=== PATIENT | male | born 1980 | race Caucasian/White ===

== ENCOUNTER 2017-08-28 11:00 | Emergency (ER) | payer BC ==
[2017-08-28] MEDS ORDERED: METRONIDAZOLE 500mg IVPB 500 MG/100 ML BAG IV ONE (12:47)
[2017-08-28] MEDS ORDERED: MORPHINE 4 MG/ML SYR ONE ×2 (12:47→14:56)
[2017-08-28] MEDS ORDERED: ONDANSETRON 4 MG/2 ML VIAL ONE ×2 (12:47→14:56)
[2017-08-28] MEDS ORDERED: NA CHLORIDE 0.9% 1,000 ML ONE (12:47)
[2017-08-28] MEDS ORDERED: Levofloxacin500mg IV 500 MG/100 ML BAG IV ONE (12:47)
--- NOTE | 2017-08-28 13:52 | RAD REPORT ---
EXAM DESCRIPTION: CTAbdomen Pelvis W Contrast - 08/28/2017 1:41 pm CLINICAL HISTORY: Abdominal pain. Perineal pain/swelling COMPARISON: No comparisons TECHNIQUE: Biphasic CT imaging of the abdomen and pelvis was performed with 100 ml non-ionic IV cont rast. All CT scans are performed using dose optimization technique as appropriate and may include automated exposure control or mA/KV adjustment according to patient size. FINDINGS: The lung bases are clear. The liver, spleen, pancreas, adrenal glands and kidneys are within normal limits. No bowel obstruction, free air, free fluid or abscess. The appendix is normal. No suspicious bony findings. Prominent fat stranding is seen in the perineum without a focal fluid collection to suggest abscess. Several prominent left inguinal lymph nodes are presumably reactive in nature. IMPRESSION: Inflammatory changes are seen in the fat of the perineum on the left. No localized fluid collection is seen in the region to indicate abscess. Mild reactive left inguinal region adenopathy suspected.
--- NOTE | 2017-08-28 14:21 | EDPHYS ---
Physician Documentation [facility] Name: Price Becker Age: 36 yrs Sex: Male : 1980 Arrival Date: 08/28/2017 Time: 11:02 Bed 8 Private MD: Sanju Mahoney H ED Physician Dejuan Fletcher HPI: 08/28 12:08 This 36 yrs old Male presents to ER via Ambulatory with complaints of Abscess.kdr 12:08 the patient presents with a swollen area of the left gluteal fold, groin and left kdr femoral area, Left perineum . Description: erythematous, fluctuant, raised, swollen, warm. Onset: The symptoms/episode began/occurred this morning. Possible cause(s): unknown. Associated signs and symptoms: The patient has no apparent associated signs or symptoms. Modifying factors: the symptoms are alleviated by nothing, the symptoms are aggravated by movement, walking, pressure, sitting, touching. Severity of symptoms: At their worst the symptoms were mild, just prior to arrival, in the emergency department the symptoms are unchanged. The patient has not experienced similar symptoms in the past. The patient has been recently seen by a physician: Has been seen for low back pain recently and was scheduled to have an MRI of his back - this problem started in the last few weeks. Historical: - Allergies: 11:14 PENICILLINS; sg - Home Meds: 11:14 Lisinopril Oral [Active]; sg - PMHx: 11:14 Depression; Hypertension; sg - PSHx: 11:14 None; sg - Immunization history:: Adult Immunizations up to date. - Social history:: Smoking status: Patient uses tobacco products, denies chronic smoking, but will smoke occasionally. - Ebola Screening: : Patient negative for fever greater than or equal to 101.5 degrees Fahrenheit, and additional compatible Ebola Virus Disease symptoms Patient denies exposure to infectious person Patient denies travel to an Ebola-affected area in the 21 days before illness onset No symptoms or risks identified at this time. ROS: 12:08 Constitutional: Negative for fever, chills, and weight loss, Eyes: Negative for injury, kdr pain, redness, and discharge, Neck: Negative for injury, pain, and swelling, Cardiovascular: Negative for chest pain, palpitations, and edema, Respiratory: Negative for shortness of breath, cough, wheezing, and pleuritic chest pain, Abdomen/GI: Negative for abdominal pain, nausea, vomiting, diarrhea, and constipation, Back: Negative for injury and pain, : Negative for injury, bleeding, discharge, and swelling, MS/Extremity: Negative for injury and deformity, Skin: Negative for injury, rash, and discoloration, Neuro: Negative for headache, weakness, numbness, tingling, and seizure activity. Psych: Negative for depression, anxiety, suicide ideation, homicidal ideation, and hallucinations, Allergy/Immunology: Negative for hives, rash, and allergies, Endocrine: Negative for neck swelling, polydipsia, polyuria, polyphagia, and marked weight changes, Hematologic/Lymphatic: Negative for swollen nodes, abnormal bleeding, and unusual bruising. 12:08 : Positive for Swelling and tenderness to the left perineum . Exam: 12:08 Constitutional: This is a well developed, well nourished patient who is awake, alert, kdr and in no acute distress. Head/Face: Normocephalic, atraumatic. Eyes: Pupils equal round and reactive to light, extra-ocular motions intact. Lids and lashes normal. Conjunctiva and sclera are non-icteric and not injected. Cornea within normal limits. Periorbital areas with no swelling, redness, or edema. Neck: Trachea midline, no thyromegaly or masses palpated, and no cervical lymphadenopathy. Supple, full range of motion without nuchal rigidity, or vertebral point tenderness. No Meningismus. Chest/axilla: Normal chest wall appearance and motion. Nontender with no deformity. No lesions are appreciated. Cardiovascular: Regular rate and rhythm with a normal S1 and S2. No gallops, murmurs, or rubs. Normal PMI, no JVD. No pulse deficits. Respiratory: Lungs have equal breath sounds bilaterally, clear to auscultation and percussion. No rales, rhonchi or wheezes noted. No increased work of breathing, no retractions or nasal flaring. Abdomen/GI: Soft, non-tender, with normal bowel sounds. No distension or tympany. No guarding or rebound. No evidence of tenderness throughout. Back: No spinal tenderness. No costovertebral tenderness. Full range of motion. Skin: Warm, dry with normal turgor. Normal color with no rashes, no lesions, and no evidence of cellulitis. MS/ Extremity: Pulses equal, no cyanosis. Neurovascular intact. Full, normal range of motion. Neuro: Awake and alert, GCS 15, oriented to person, place, time, and situation. Cranial nerves II-XII grossly intact. Motor strength 5/5 in all extremities. Sensory grossly intact. Cerebellar exam normal. Normal gait. Psych: Awake, alert, with orientation to person, place and time. Behavior, mood, and affect are within normal limits. 12:08 : Male external genitalia: Vital Signs: 11:14 Pulse 112; Resp 17 S; Temp 98.4; Pulse Ox 100% on R/A; Weight 108.86 kg; Height 6 ft. 0 sg in. (182.88 cm); Pain 10/10; 11:16 BP 124 / 67; sg 13:00 BP 132 / 70; Pulse 101; Resp 20; Pulse Ox 99% on R/A; aj 14:42 BP 127 / 69; Pulse 95; Resp 19; Pulse Ox 99% on R/A; aj 16:21 BP 141 / 78; Pulse 86; Resp 15; Pulse Ox 98% on R/A; aj 11:14 Body Mass Index 32.55 (108.86 kg, 182.88 cm) sg MDM: 12:08 Data reviewed: vital signs, nurses notes, lab test result(s). kdr 14:20 Patient medically screened. kdr 08/28 13:31 Order name: CBC with Diff; Complete Time: 14:46 kdr 08/28 13:31 Order name: Chem 7 kdr 08/28 12:07 Order name: CT Abd/Pelvis - W/Contrast; Complete Time: 14:03 kdr Administered Medications: 12:57 Drug: Flagyl 500 mg Volume: 100 ml; Route: IVPB; Rate: 200 ml/hr; Infused Over: 30 aj mins; Site: right antecubital; 14:16 Follow up: IV Status: Completed infusion ae1 12:58 Drug: morphine 4 mg Route: IVP; Site: right antecubital; aj 15:00 Follow up: Response: Pain is decreased aj 12:58 Drug: Zofran 4 mg Route: IVP; Site: right antecubital; aj 15:00 Follow up: Response: No adverse reaction aj 12:58 Drug: NS 0.9% 1000 ml Route: IV; Rate: 1 bolus; Site: right antecubital; aj 14:16 Follow up: IV Status: Completed infusion ae1 14:59 Drug: LevaQUIN 750 mg Volume: 150 ml; Route: IVPB; Infused Over: 90 mins; Site: right aj antecubital; 16:30 Follow up: Response: No adverse reaction; IV Status: Completed infusion; IV Intake: aj 150ml 14:59 Drug: morphine 4 mg Route: IVP; Site: right antecubital; aj 16:30 Follow up: Response: Pain is decreased aj 15:00 Drug: Zofran 4 mg Route: IVP; Site: right antecubital; aj 16:30 Follow up: Response: No adverse reaction aj 15:00 Drug: [place] 10 mg-325 mg 1 tabs Route: PO; aj 16:31 Follow up: Response: Pain is decreased aj Disposition: 08/28/17 14:20 Discharged to Home. Impression: Cellulitis of perineum. - Condition is Stable. - Discharge Instructions: Cellulitis, [id number]. - Prescriptions for Clindamycin HCl 300 mg Oral Capsule - take 1 capsule by ORAL route every 6 hours for 10 days; 40 capsule. Tramadol 50 mg Oral Tablet - take 1 tablet by ORAL route every 8 hours as needed; 12 tablet. Bactrim DS 800- 160 mg Oral Tablet - take 1 tablet by ORAL route every 12 hours for 10 days; 20 tablet. Tylenol- Codeine #3 300-30 mg Oral Tablet - take 2 tablet by ORAL route every 6 hours As needed; 30 tablet. - Medication Reconciliation Form, Thank You Letter, Antibiotic Education, Prescription Opioid Use form. - Follow up: Private Physician; When: 2 - 3 days; Reason: If symptoms return, Further diagnostic work-up, Recheck today's complaints, Continuance of care, Re-evaluation by your physician. - Problem is new. - Symptoms are unchanged. Signatures: Dispatcher [employer] EDMS Quintin Celeste RN RN sg Myers, Amanda, RN RN aj Rittger, Kevin, MD MD kdr Elliott, Andrea RN ae1 Corrections: (The following items were deleted from the chart) 16:31 14:20 08/28/2017 14:20 Discharged to Home. Impression: Cellulitis of perineum. aj Condition is Stable. Forms are Medication Reconciliation Form, Thank You Letter, Antibiotic Education, Prescription Opioid Use. Follow up: Private Physician; When: 2 - 3 days; Reason: If symptoms return, Further diagnostic work-up, Recheck today's complaints, Continuance of care, Re-evaluation by your physician. Problem is new. Symptoms are unchanged. kdr
--- NOTE | 2017-08-28 14:21 | ER ---
Nurse's Notes [facility] Name: Price Becker Age: 36 yrs Sex: Male : 1980 Arrival Date: 08/28/2017 Time: 11:02 Bed 8 Private MD: Sanju Mahoney H Diagnosis: Cellulitis of perineum Presentation: 08/28 11:12 Presenting complaint: Patient states: Abscess reported the size of the golfball, in sg perineum area, reports pain and redness. Transition of care: patient was not received from another setting of care. Onset of symptoms was August 28, 2017. Risk Assessment: Do you want to hurt yourself or someone else? Patient reports no desire to harm self or others. Care prior to arrival: None. 11:12 Method Of Arrival: Ambulatory 11:12 Acuity: CASANDRA 3 sg Historical: - Allergies: 11:14 PENICILLINS; sg - Home Meds: 11:14 Lisinopril Oral [Active]; sg - PMHx: 11:14 Depression; Hypertension; sg - PSHx: 11:14 None; sg - Immunization history:: Adult Immunizations up to date. - Social history:: Smoking status: Patient uses tobacco products, denies chronic smoking, but will smoke occasionally. - Ebola Screening: : Patient negative for fever greater than or equal to 101.5 degrees Fahrenheit, and additional compatible Ebola Virus Disease symptoms Patient denies exposure to infectious person Patient denies travel to an Ebola-affected area in the 21 days before illness onset No symptoms or risks identified at this time. Screenin:00 Abuse screen: Denies threats or abuse. Denies injuries from another. Nutritional aj screening: No deficits noted. Tuberculosis screening: No symptoms or risk factors identified. Fall Risk None identified. Assessment: 13:00 General: Appears in no apparent distress. uncomfortable, Behavior is calm, cooperative, aj appropriate for age. Pain: Complains of pain in perineum. Neuro: Level of Consciousness is awake, alert, obeys commands, Oriented to person, place, time, situation, Appropriate for age. Respiratory: Airway is patent Respiratory effort is even, unlabored, Respiratory pattern is regular, symmetrical. Derm: Skin is intact, is healthy with good turgor, Skin is pink, warm \T\ dry. normal, Abscess located on perineum. 16:20 Reassessment: Patient appears in no apparent distress at this time. No changes from aj previously documented assessment. Patient and/or family updated on plan of care and expected duration. Pain level reassessed. Patient is alert, oriented x 3, equal unlabored respirations, skin warm/dry/pink. Patient states feeling better. Patient states symptoms have improved. Vital Signs: 11:14 Pulse 112; Resp 17 S; Temp 98.4; Pulse Ox 100% on R/A; Weight 108.86 kg; Height 6 ft. 0 sg in. (182.88 cm); Pain 10/10; 11:16 BP 124 / 67; sg 13:00 BP 132 / 70; Pulse 101; Resp 20; Pulse Ox 99% on R/A; aj 14:42 BP 127 / 69; Pulse 95; Resp 19; Pulse Ox 99% on R/A; aj 16:21 BP 141 / 78; Pulse 86; Resp 15; Pulse Ox 98% on R/A; aj 11:14 Body Mass Index 32.55 (108.86 kg, 182.88 cm) ED Course: 11:02 Patient arrived in ED. sb2 11:03 Sanju Mahoney MD is Private Physician. sb2 11:13 Triage completed. sg 11:14 Arm band placed on. sg 11:54 Dejuan Fletcher MD is Attending Physician. kdr 12:18 Radiology exam delayed due to lab results not completed at this time. (BUN/Creatinine) vr IV insertion attempt and/or patient not having appropriate IV at this time. 12:20 Gia Sher, RN is Primary Nurse. aj 13:00 Patient has correct armband on for positive identification. aj 13:00 Inserted saline lock: 18 gauge in right antecubital area, using aseptic technique. aj Blood collected. 13:41 CT Abd/Pelvis - W/Contrast In Process Unspecified. EDMS 16:29 No provider procedures requiring assistance completed. IV discontinued, intact, aj bleeding controlled, No redness/swelling at site. Pressure dressing applied. Administered Medications: 12:57 Drug: Flagyl 500 mg Volume: 100 ml; Route: IVPB; Rate: 200 ml/hr; Infused Over: 30 aj mins; Site: right antecubital; 14:16 Follow up: IV Status: Completed infusion ae1 12:58 Drug: morphine 4 mg Route: IVP; Site: right antecubital; aj 15:00 Follow up: Response: Pain is decreased aj 12:58 Drug: Zofran 4 mg Route: IVP; Site: right antecubital; aj 15:00 Follow up: Response: No adverse reaction aj 12:58 Drug: NS 0.9% 1000 ml Route: IV; Rate: 1 bolus; Site: right antecubital; aj 14:16 Follow up: IV Status: Completed infusion ae1 14:59 Drug: LevaQUIN 750 mg Volume: 150 ml; Route: IVPB; Infused Over: 90 mins; Site: right aj antecubital; 16:30 Follow up: Response: No adverse reaction; IV Status: Completed infusion; IV Intake: aj 150ml 14:59 Drug: morphine 4 mg Route: IVP; Site: right antecubital; aj 16:30 Follow up: Response: Pain is decreased aj 15:00 Drug: Zofran 4 mg Route: IVP; Site: right antecubital; aj 16:30 Follow up: Response: No adverse reaction aj 15:00 Drug: [place] 10 mg-325 mg 1 tabs Route: PO; aj 16:31 Follow up: Response: Pain is decreased aj Intake: 16:30 IV: 150ml; Total: 150ml. aj Outcome: 14:20 Discharge ordered by . kdr 16:31 Patient left the ED. aj Signatures: Dispatcher [employer] EDMS Quintin Celeste, RN Gia Tovar RN RN aj Rittger, Kevin, MD MD kdr Davis, Victoria vr Elliott, Andrea, RN RN aeFátima Lanier
[2017-08-28 14:43] LABS: Absolute Lymphocytes (CBC) 1.6 K/uL (0.7-4.9); Absolute Monocytes 2.5 K/uL (0.1-1.3); Absolute Neutrophil 14.7 K/uL (1.8-8.0); Basophils % 0.1 % (0-1.3); Eosinophils % 0.1 % (0-4.4); Hematocrit 42.7 % (39.6-49.0); Lymphocytes % 8.5 % (15.3-44.8); MCH 33.2 pg (27.0-35.0); MCV 97.5 fL (80-100); MPV 7.9 fL (7.6-11.3); Monocytes % 13.4 % (3.3-12.3); RBC Red Blood Cell Count 4.38 M/uL (4.33-5.43)
[2017-08-28] MEDS ORDERED: Levofloxacin 750mg IV 750 MG/150 ML BAG IV ONE (14:49)
[2017-08-28 14:55] LABS: Potassium 4.4 mmol/L (3.5-5.1)
[2017-08-28] MEDS ORDERED: HYDROCODONE/APAP 10/325 TAB ONE (14:56)
[2017-08-28 16:43] VITALS: TEMP 98.4
[2017-08-28 16:47] VITALS: BP 141/78; O2SAT 98
== END 2017-08-28 16:31 | disposition home or self-care (01) ==
LOC: ER 11:00
DX: L03.315 Cellulitis of perineum (principal); I10 Essential (primary) hypertension; Z72.0 Tobacco use; Z88.0 Allergy status to penicillin
CPT/HCPCS: 36415; 74177; 80048; 85025; 96361; 96365; 96366; 96367; 96375; 99284; J2405; J7030; Q9967

== ENCOUNTER 2017-08-30 09:37 | Inpatient (IN) | payer BC ==
[2017-08-30] MEDS ORDERED: ONDANSETRON 4 MG/2 ML VIAL ONE (10:19)
[2017-08-30] MEDS ORDERED: FENTANYL CITR 100 MCG/2 ML ONE (10:19)
[2017-08-30 11:04] LABS: Absolute Lymphocytes (CBC) 1.1 K/uL (0.7-4.9); Absolute Monocytes 1.6 K/uL (0.1-1.3); Absolute Neutrophil 17.9 K/uL (1.8-8.0); Basophils % 0.3 % (0-1.3); Eosinophils % 0.3 % (0-4.4); Hematocrit 40.8 % (39.6-49.0); Lymphocytes % 5.4 % (15.3-44.8); MCH 33.5 pg (27.0-35.0); MCV 96.4 fL (80-100); MPV 7.6 fL (7.6-11.3); Monocytes % 7.9 % (3.3-12.3); RBC Red Blood Cell Count 4.23 M/uL (4.33-5.43)
[2017-08-30 11:42] LABS: Albumin 3.4 g/dL (3.4-5.0); Bilirubin Direct 0.2 mg/dL (0-0.2); Bilirubin Total 0.7 mg/dL (0.2-1.0); Potassium 4.3 mmol/L (3.5-5.1); Protein, Total 7.7 g/dL (6.4-8.2)
--- NOTE | 2017-08-30 12:22 | RAD REPORT ---
EXAM DESCRIPTION: CT - Pelvis W/Cont - 08/30/2017 11:46 am CLINICAL HISTORY: Pelvic pain/perineal COMPARISON: August [address] scan TECHNIQUE: Computed axial tomography of the pelvis was obtained. 50 cc Isovue-300 administered intra venously. All CT scans are performed using dose optimization technique as appropriate and may include automated exposure control or mA/KV adjustment according to patient size. FINDINGS: Marked stranding is present within the subcutaneous tissues of the left buttock and left p erineum. A 2 x 1 centimeter fluid collection is present within the anterior left perineum. Air within the tissues is not seen. The appendix is normal. There is no evidence diverticulitis. An intraabdominal abscess is not noted. IMPRESSION: Marked stranding within the subcutaneous tissues of the left buttock and left perineum c onsistent with a cellulitis 2 x 1 centimeter fluid collection within the anterior left perineum likely representing an abscess
--- NOTE | 2017-08-30 12:29 | ER ---
Nurse's Notes [facility] Name: Price Becker Age: 36 yrs Sex: Male : 1980 Arrival Date: 08/30/2017 Time: 09:40 Bed 6 Private MD: Sanju Mahoney H Diagnosis: Cutaneous abscess of perineum;Cellulitis of perineum Presentation: 08/30 09:53 Presenting complaint: Patient states: increased redness, swelling and drainage from sv abscess to the left buttocks into the perineum. Pt reports he was seen here on Thursday and they sent him home with Clindamycin, Bactrim, Tramadol, and Tylenol #3. Pt reports it started on after completing Prednisone. Pt reports constipation. Transition of care: patient was not received from another setting of care. Onset of symptoms was August 27, 2017. Risk Assessment: Do you want to hurt yourself or someone else? Patient reports no desire to harm self or others. Initial Sepsis Screen: Does the patient meet any 2 criteria? No. Patient's initial sepsis screen is negative. Does the patient have a suspected source of infection? Yes: Skin breakdown/wound. Care prior to arrival: None. 09:53 Method Of Arrival: Ambulatory sv 09:53 Acuity: CASANDRA 3 sv Triage Assessment: 09:55 General: Appears in no apparent distress. uncomfortable, well developed, Behavior is sv calm, cooperative, appropriate for age. Pain: Complains of pain in left gluteus essie, left gluteal fold and perineum Pain currently is 10 out of 10 on a pain scale. Pain began Is continuous, Current management is with Tylenol #3 is ineffective. EENT: No signs and/or symptoms were reported regarding the EENT system. Neuro: Level of Consciousness is awake, alert, obeys commands, Oriented to person, place, time, situation, Moves all extremities. Full function Gait is steady. Respiratory: Respiratory effort is even, unlabored, Respiratory pattern is regular, symmetrical. Derm: Skin is pink, warm \T\ dry. Abscess located on left gluteus essie, left gluteal fold and perineum has purulent drainage, is hot to touch, is red, is raised, was lanced by patient prior to arrival. Historical: - Allergies: 10:02 PENICILLINS; sv - Home Meds: 10:02 lisinopril Oral [Active]; sv - PMHx: 10:02 Depression; Hypertension; sv - PSHx: 10:02 None; sv - Immunization history:: Adult Immunizations up to date. - Ebola Screening: : No symptoms or risks identified at this time. - Social history:: Smoking status: Patient uses tobacco products, denies chronic smoking, but will smoke occasionally. Screenin:06 Abuse screen: Denies threats or abuse. Denies injuries from another. Nutritional sv screening: No deficits noted. Tuberculosis screening: No symptoms or risk factors identified. Fall Risk None identified. Assessment: 10:06 Reassessment: See triage assessment. sv 12:58 Reassessment: Patient appears in no apparent distress at this time. Patient and/or ph family updated on plan of care and expected duration. Pain level reassessed. Patient is alert, oriented x 3, equal unlabored respirations, skin warm/dry/pink. Pt c/o pain 5/10, medication administered per ERP order, see MAR. 14:47 Reassessment: Patient appears in no apparent distress at this time. Patient and/or sv family updated on plan of care and expected duration. Pain level reassessed. Patient is alert, oriented x 3, equal unlabored respirations, skin warm/dry/pink. 15:19 Reassessment: Patient appears in no apparent distress at this time. Patient and/or sv family updated on plan of care and expected duration. Pain level reassessed. Patient is alert, oriented x 3, equal unlabored respirations, skin warm/dry/pink. Vital Signs: 10:02 BP 132 / 70; Pulse 88; Resp 20; Temp 97.9; Pulse Ox 96% ; Weight 108.86 kg; Height 6 sv ft. 0 in. (182.88 cm); Pain 10/10; 11:03 BP 116 / 64; Pulse 90; Resp 18; Pulse Ox 96% ; Pain 4/10; sv 11:04 Pain 4/10; sv 12:17 BP 126 / 61; Pulse 73; Resp 18; Pulse Ox 97% ; sv 13:03 BP 132 / 73; Pulse 79; Resp 16; Pulse Ox 98% on R/A; Pain 5/10; ph 15:20 BP 120 / 71; Pulse 77; Resp 18; Pulse Ox 99% ; sv 10:02 Body Mass Index 32.55 (108.86 kg, 182.88 cm) sv ED Course: 09:40 Patient arrived in ED. sb2 09:40 Sanju Mahoney MD is Private Physician. sb2 09:52 Roberta Carmen, EVERARDO is Primary Nurse. sv 09:59 Jhon West NP is PHCP. pm1 09:59 Ryan Mahmood MD is Attending Physician. pm1 10:01 Triage completed. sv 10:02 Arm band placed on right wrist. sv 10:06 Patient has correct armband on for positive identification. Placed in gown. Bed in low sv position. Adult w/ patient. Pulse ox on. NIBP on. Door closed. Warm blanket given. Head of bed elevated. 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 sv 10:20 Initial lab(s) drawn, by me, sent to lab. Inserted saline lock: 20 gauge in left sv antecubital area, using aseptic technique. Blood collected. Flushed left antecubital with 5 ml normal saline. 10:50 Note: waiting on labs per jhon west np. Radiology exam delayed due to lab results cw1 not completed at this time. (BUN/Creatinine). 11:00 Lab(s) recollected, by me, sent to lab. sv 11:46 CT completed. Patient moved to CT via stretcher. Patient moved back from CT. cw1 11:47 Pelvis W/Cont In Process Unspecified. EDMS 12:28 Aracely Choudhury MD is Hospitalizing Provider. pm1 15:00 Assist provider with I \T\ D: of an abscess on left perineal Set up I\T\D tray. Performed sv by Jhon West NP Culture sent to lab. Wound packed. iodoform gauze, Dressing with ABD pad, Patient tolerated well. Patient admitted, IV remains in place. intact. Administered Medications: 10:15 CANCELLED (Physician Discretion): morphine 4 mg IVP once pm1 10:28 Drug: Zofran 4 mg Route: IVP; Site: left antecubital; sv 11:04 Follow up: Response: No adverse reaction sv 10:30 Drug: fentaNYL (PF) 50 mcg Route: IVP; Site: left antecubital; sv 11:04 Follow up: Pain 4/10 Adult; Response: No adverse reaction sv 12:43 Drug: vancoMYCIN 1 grams Route: IVPB; Infused Over: 2 hrs; Site: left antecubital; ph 14:45 Follow up: Response: No adverse reaction; IV Status: Completed infusion; IV Intake: sv 200ml 12:58 Drug: fentaNYL (PF) 50 mcg Route: IVP; Site: left antecubital; ph 13:44 Follow up: Response: No adverse reaction sv 14:47 Drug: Zosyn 3.375 grams Route: IVPB; Infused Over: 60 mins; Site: left antecubital; sv 15:21 Follow up: Response: No adverse reaction; IV Status: Completed infusion; IV Intake: sv 100ml 15:00 Drug: Lidocaine (1 %) 5 ml {Note: given to Jhon MENDOSA for procedure.} Volume: 5 ml; sv Route: Infiltration; 15:00 Drug: Marcaine (0.5 %) 10 ml {Note: given to Jhon MENDOSA.} Volume: 10 ml; Route: sv Infiltration; Intake: 14:45 IV: 200ml; Total: 200ml. sv 15:21 IV: 100ml; Total: 300ml. sv Outcome: 12:29 Decision to Hospitalize by Provider. pm1 15:28 Admitted to Med/surg accompanied by tech, via wheelchair, room 409, with chart, Report sv called to Sari MCGEE 15:28 Condition: stable 15:28 Instructed on the need for admit. 15:42 Patient left the ED. sv 15:55 Patient left the ED. Signatures: Dispatcher [facility] Roberta Cristobal RN RN sv Smirch, Shelby, RN RN ss Woodley, Crystal 1 Shirley Eng RN RN ph Marinas, Patrick, NP [employer] pm1 Fátima Villanueva
--- NOTE | 2017-08-30 12:29 | EDPHYS ---
Physician Documentation [facility] Name: Price Becker Age: 36 yrs Sex: Male : 1980 Arrival Date: 08/30/2017 Time: 09:40 Bed 6 Private MD: Sanju Mahoney H ED Physician Ryan Mahmood HPI: 08/30 10:18 This 36 yrs old Male presents to ER via Ambulatory with complaints of pm1 Cellulitis. 10:18 The patient presents with cellulitis of the left perineum. Description: draining, pm1 swollen, tense. 10:18 Onset: The symptoms/episode began/occurred 4 day(s) ago. Possible cause(s): unknown. pm1 Associated signs and symptoms: Pertinent positives: drainage, Pertinent negatives: nausea, vomiting. Modifying factors: the symptoms are alleviated by nothing, the symptoms are aggravated by movement, pressure, sitting. Severity of symptoms: in the emergency department the symptoms are actually worse. The patient has not experienced similar symptoms in the past. The patient has been recently seen at the [facility] Emergency Department, two days ago for the same complaint. labs and Ct performed. No abscess present on CT. Patient discharged home with dx of cellulitis and antibiotic therapy. 11:16 Tmax 100.0 axillary at home. Has had some chills since onset of swelling. Has been pm1 taking ibuprofen and Tylenol at home for pain and fever. . Historical: - Allergies: 10:02 PENICILLINS; sv - Home Meds: 10:02 lisinopril Oral [Active]; sv - PMHx: 10:02 Depression; Hypertension; sv - PSHx: 10:02 None; sv - Immunization history:: Adult Immunizations up to date. - Ebola Screening: : No symptoms or risks identified at this time. - Social history:: Smoking status: Patient uses tobacco products, denies chronic smoking, but will smoke occasionally. ROS: 10:18 Neuro: Negative for headache, weakness, numbness, tingling, and seizure. pm1 10:18 Eyes: Negative for injury, pain, redness, and discharge, ENT: Negative for injury, pain, and discharge, Neck: Negative for injury, pain, and swelling, Cardiovascular: Negative for chest pain, palpitations, and edema, Respiratory: Negative for shortness of breath, cough, wheezing, and pleuritic chest pain, Abdomen/GI: Negative for abdominal pain, nausea, vomiting, diarrhea, and constipation, Back: Negative for injury and pain, : Negative for injury, bleeding, discharge, and swelling, MS/Extremity: Negative for injury and deformity. 10:18 Skin: Positive for cellulitis, swelling, of the left perineum, left groin, left gluteal fold. 11:18 Constitutional: Positive for chills, fever, Negative for poor PO intake. pm1 Exam: 10:20 Constitutional: This is a well developed, well nourished patient who is awake, alert, pm1 and in no acute distress. Head/Face: Normocephalic, atraumatic. Eyes: Pupils equal round and reactive to light, extra-ocular motions intact. Lids and lashes normal. Conjunctiva and sclera are non-icteric and not injected. Cornea within normal limits. Periorbital areas with no swelling, redness, or edema. ENT: Nares patent. No nasal discharge, no septal abnormalities noted. Tympanic membranes are normal and external auditory canals are clear. Oropharynx with no redness, swelling, or masses, exudates, or evidence of obstruction, uvula midline. Mucous membranes moist. Neck: Trachea midline, no thyromegaly or masses palpated, and no cervical lymphadenopathy. Supple, full range of motion without nuchal rigidity, or vertebral point tenderness. No Meningismus. Chest/axilla: Normal chest wall appearance and motion. Nontender with no deformity. No lesions are appreciated. Cardiovascular: Regular rate and rhythm with a normal S1 and S2. No gallops, murmurs, or rubs. Normal PMI, no JVD. No pulse deficits. Respiratory: Lungs have equal breath sounds bilaterally, clear to auscultation and percussion. No rales, rhonchi or wheezes noted. No increased work of breathing, no retractions or nasal flaring. Abdomen/GI: Soft, non-tender, with normal bowel sounds. No distension or tympany. No guarding or rebound. No evidence of tenderness throughout. Back: No spinal tenderness. No costovertebral tenderness. Full range of motion. 10:20 Skin: Appearance: normal except for affected area, abscess, that is small, of the left perineum, with drainage, cellulitis, on the left perineum and left groin and left gluteal fold. Vital Signs: 10:02 BP 132 / 70; Pulse 88; Resp 20; Temp 97.9; Pulse Ox 96% ; Weight 108.86 kg; Height 6 sv ft. 0 in. (182.88 cm); Pain 10/10; 11:03 BP 116 / 64; Pulse 90; Resp 18; Pulse Ox 96% ; Pain 4/10; sv 11:04 Pain 4/10; sv 12:17 BP 126 / 61; Pulse 73; Resp 18; Pulse Ox 97% ; sv 13:03 BP 132 / 73; Pulse 79; Resp 16; Pulse Ox 98% on R/A; Pain 5/10; ph 15:20 BP 120 / 71; Pulse 77; Resp 18; Pulse Ox 99% ; sv 10:02 Body Mass Index 32.55 (108.86 kg, 182.88 cm) sv MDM: 10:01 Patient medically screened. pm1 10:17 ED course: Patient told nurse that morphine ineffective two days ago. Changed to pm1 fentanyl. 12:27 Data reviewed: vital signs. Data interpreted: Pulse oximetry: on room air is 97 %. pm1 Interpretation: normal. Counseling: I had a detailed discussion with the patient and/or guardian regarding: the historical points, exam findings, and any diagnostic results supporting the discharge/admit diagnosis, lab results, radiology results, the need for further work-up and treatment in the hospital. 14:05 Physician consultation: Home Hopson MD was called at 14:00, was contacted at 14:00, pm1 regarding patient's condition, and will see patient tomorrow, Requests I\T\D of abscess. 08/30 10:14 Order name: Creatinine for Radiology; Complete Time: 11:43 pm1 08/30 10:14 Order name: Basic Metabolic Panel; Complete Time: 11:43 pm1 08/30 10:14 Order name: CBC with Diff; Complete Time: 13:29 pm1 08/30 10:14 Order name: Hepatic Function; Complete Time: 11:43 pm1 08/30 11:11 Order name: CBC Smear Scan; Complete Time: 13:29 EDMS 08/30 11:15 Order name: Blood Culture Adult (2) pm1 08/30 10:49 Order name: Pelvis W/Cont; Complete Time: 12:26 EDMS 08/30 11:15 Order name: Lactate; Complete Time: 12:06 pm1 08/30 11:15 Order name: Procalcitonin; Complete Time: 12:34 pm1 08/30 15:54 Order name: Wound Culture ss 08/30 10:14 Order name: IV Saline Lock; Complete Time: 10:33 pm1 08/30 10:14 Order name: Labs collected and sent; Complete Time: 10:33 pm1 08/30 14:03 Order name: Incision \T\ Drainage Setup; Complete Time: 14:24 pm1 Administered Medications: 10:15 CANCELLED (Physician Discretion): morphine 4 mg IVP once pm1 10:28 Drug: Zofran 4 mg Route: IVP; Site: left antecubital; sv 11:04 Follow up: Response: No adverse reaction sv 10:30 Drug: fentaNYL (PF) 50 mcg Route: IVP; Site: left antecubital; sv 11:04 Follow up: Pain 4/10 Adult; Response: No adverse reaction sv 12:43 Drug: vancoMYCIN 1 grams Route: IVPB; Infused Over: 2 hrs; Site: left antecubital; ph 14:45 Follow up: Response: No adverse reaction; IV Status: Completed infusion; IV Intake: sv 200ml 12:58 Drug: fentaNYL (PF) 50 mcg Route: IVP; Site: left antecubital; ph 13:44 Follow up: Response: No adverse reaction sv 14:47 Drug: Zosyn 3.375 grams Route: IVPB; Infused Over: 60 mins; Site: left antecubital; sv 15:21 Follow up: Response: No adverse reaction; IV Status: Completed infusion; IV Intake: sv 100ml 15:00 Drug: Lidocaine (1 %) 5 ml {Note: given to Frederick MENDOSA for procedure.} Volume: 5 ml; sv Route: Infiltration; 15:00 Drug: Marcaine (0.5 %) 10 ml {Note: given to Frederick MENDOSA.} Volume: 10 ml; Route: sv Infiltration; Disposition: 08/30/17 12:29 Hospitalization ordered by Aracely Choudhury for Inpatient Admission. Preliminary diagnosis are Cutaneous abscess of perineum, Cellulitis of perineum. - Bed requested for Telemetry/MedSurg (Inpatient). - Status is Inpatient Admission. ss - Condition is Stable. - Problem is new. - Symptoms have improved. UTI on Admission? No Addendum: 08/31/2017 21:27 Co-signature as Attending Physician, Ryan Mahmood MD. m a2 Signatures: Dispatcher [employer] [facility] Roberta Carmen, Celsa Allan RN, RN RN ss Shirley Eng RN RN ph Frederick Gutierrez, [employer] pm1 Ryan Mahmood MD MD ms2 Mary Lou Brito eb Corrections: (The following items were deleted from the chart) 08/30 10:15 10:14 morphine 4 mg IVP once ordered. pm1 pm1 10:49 10:17 Abdomen Pelvis W Con+CT.RAD.BRZ ordered. EDNH EDMS 11:18 10:18 Onset: The symptoms/episode began/occurred 2 day(s) ago, pm1 pm1 11:18 10:18 Associated signs and symptoms: Pertinent positives: drainage, Pertinent pm1 negatives: fever, nausea, vomiting, pm1 11:18 10:18 Constitutional: Negative for fever, chills, and weight loss, Eyes: Negative for pm1 injury, pain, redness, and discharge, ENT: Negative for injury, pain, and discharge, Neck: Negative for injury, pain, and swelling, Cardiovascular: Negative for chest pain, palpitations, and edema, Respiratory: Negative for shortness of breath, cough, wheezing, and pleuritic chest pain, Abdomen/GI: Negative for abdominal pain, nausea, vomiting, diarrhea, and constipation, Back: Negative for injury and pain, : Negative for injury, bleeding, discharge, and swelling, MS/Extremity: Negative for injury and deformity, pm1 13:01 12:29 Hospitalization Ordered by Aracely Choudhury MD for Inpatient Admission. Preliminary eb diagnosis is Cutaneous abscess of perineum; Cellulitis of perineum. Bed requested for Telemetry/MedSurg (Inpatient). Status is Inpatient Admission. Condition is Stable. Problem is new. Symptoms have improved. UTI on Admission? No. pm1 14:34 13:01 08/30/2017 12:29 Hospitalization Ordered by Aracely Choudhury MD for Inpatient eb Admission. Preliminary diagnosis is Cutaneous abscess of perineum; Cellulitis of perineum. Bed requested for Telemetry/MedSurg (Inpatient). Status is Inpatient Admission. Condition is Stable. Problem is new. Symptoms have improved. UTI on Admission? No. eb 15:42 14:34 08/30/2017 12:29 Hospitalization Ordered by Aracely Choudhury MD for Inpatient sv Admission. Preliminary diagnosis is Cutaneous abscess of perineum; Cellulitis of perineum. Bed requested for Telemetry/MedSurg (Inpatient). Status is Inpatient Admission. Condition is Stable. Problem is new. Symptoms have improved. UTI on Admission? No. eb 15:55 15:42 08/30/2017 12:29 Hospitalization Ordered by Aracely Choudhury MD for Inpatient ss Admission. Preliminary diagnosis is Cutaneous abscess of perineum; Cellulitis of perineum. Bed requested for Telemetry/MedSurg (Inpatient). Status is Inpatient Admission. Condition is Stable. Problem is new. Symptoms have improved. UTI on Admission? No. sv
[2017-08-30] MEDS ORDERED: VANCOMYCIN 1 GM/250 ML BAG ONE (12:34)
[2017-08-30 13:26] LABS: Blood Morphology Comment NOT SEEN (NOT SEEN); Platelet Estimate ADEQ; Urine White Blood Cell Casts OK
[2017-08-30] MEDS ORDERED: BUPIVACAINE 0.5% PF 10 ML VIAL ONE (14:26)
[2017-08-30] MEDS ORDERED: LIDOCAINE 1% MPF 5 ML VIAL ONE (14:26)
[2017-08-30] MEDS ORDERED: PIPER/TAZO/NS 3.375gm 3.375 GM/100 ML BAG ONE (14:40)
--- NOTE | 2017-08-30 15:18 | P.HP ---
Certification for Inpatient Patient admitted to: Inpatient With expected LOS: >2 Midnights Patient will require the following post-hospital care: None Practitioner: I am a practitioner with admitting privileges, knowledge of patient current condition, hospital course, and medical plan of care. Services: Services provided to patient in accordance with Admission requirements found in Title 42 Section 412.3 of the Code of Federal Regulations Patient History Date of Service: 08/30/17 Primary Care Provider: Dr Mahoney Reason for admission: Perineal Abscess with Failed outpt therapy Allergies PENICILLINS Allergy (Uncoded 11/25/15 13:05) Unknown Review of Systems General: As per HPI Physical Examination - Physical Exam General: Alert, In no apparent distress HEENT: Atraumatic Neck: Supple, 2+ carotid pulse no bruit, No LAD, Without JVD or thyroid abnormality Respiratory: Clear to auscultation bilaterally, Normal air movement Cardiovascular: Regular rate/rhythm, Normal S1 S2 Gastrointestinal: Normal bowel sounds, No tenderness Musculoskeletal: No tenderness Integumentary: No rashes Neurological: Normal speech, Normal strength at 5/5 x4 extr, Normal tone Lymphatics: No axilla or inguinal lymphadenopathy External genitalia: Edema, Tenderness, Other (Erythema and drainage noted on the dorsal side of the perineal Region) - Studies Laboratory Data (last 24 hrs) 08/30/17 10:55: WBC 20.8 H*, Hgb 14.2, Hct 40.8, Plt Count 234 08/30/17 10:55: Sodium 133 L, Potassium 4.3, BUN 15, Creatinine 1.10, Glucose 110 H, Total Bilirubin 0.7, AST 18, ALT 23, Alkaline Phosphatase 61 08/30/17 10:55: Creatinine 1.10 Assessment and Plan - Problems (Diagnosis) (1) Cellulitis Current Visit: Yes Status: Acute Plan: Cellulitis of the perineal region with Failed outpt therapy -IV vanc and zosyn started -Wound culture and Blood Cutlure collected -Gen Surgery Consulte. -ABD CT with Perineal Abscess Qualifiers: Site of cellulitis: buttock Qualified Code(s): L03.317 - Cellulitis of buttock (2) Perineal abscess Current Visit: Yes Status: Acute Plan: Perineal Abscess - IV vanc and zosyn -Gen Surgery Consulted -Pt to have Drainage in the ER at bedside -F.u with Culture in AM and lab (3) HTN (hypertension) Current Visit: Yes Status: Chronic Plan: Restart Home medication Qualifiers: Hypertension type: essential hypertension Qualified Code(s): I10 - Essential (primary) hypertension Discharge Plan: Home Plan to discharge in: 48 Hours - Advance Directives Does patient have a Living Will: No Does patient have a Durable POA for Healthcare: No - Code Status/Comfort Care Code Status Assessed: Yes Critical Care: No
[2017-08-30] MEDS ORDERED: ONDANSETRON 4 MG/2 ML VIAL IV PRN (15:48)
[2017-08-30] MEDS ORDERED: ACETAMINOPHEN 500 MG TAB PO PRN (15:48)
[2017-08-30 16:31] VITALS: BMI 32.5
[2017-08-30] MEDS ORDERED: VANCOMYCIN/NS 1 gm 1 GM/250 ML BAG IV ONE (17:00)
[2017-08-30] MEDS: NA CHLORIDE 0.9% 1,000 ML IV SCH (17:09)
[2017-08-30] MEDS: TRAMADOL HCL 50 MG TAB PO PRN (17:48)
[2017-08-30] MEDS: KETOROLAC 30 MG/ML INJ IV PRN (20:24)
[2017-08-30] MEDS: PIPER/TAZO/NS 3.375gm 3.375 GM/100 ML BAG IVPB SCH (20:25)
[2017-08-31] MEDS: NA CHLORIDE 0.9% 1,000 ML IV SCH ×4 (01:48→21:48)
[2017-08-31 04:03] LABS: Absolute Lymphocytes (CBC) 1.3 K/uL (0.7-4.9); Absolute Monocytes 1.3 K/uL (0.1-1.3); Absolute Neutrophil 10.7 K/uL (1.8-8.0); Basophils % 0.3 % (0-1.3); Eosinophils % 1.7 % (0-4.4); Hematocrit 41.7 % (39.6-49.0); Lymphocytes % 9.9 % (15.3-44.8); MCH 34.2 pg (27.0-35.0); MCV 98.8 fL (80-100); MPV 7.7 fL (7.6-11.3); Monocytes % 9.3 % (3.3-12.3); RBC Red Blood Cell Count 4.22 M/uL (4.33-5.43)
[2017-08-31 04:21] LABS: Bilirubin Total 0.5 mg/dL (0.2-1.0); Magnesium 2.4 mg/dL (1.8-2.4); Phosphorus 3.9 mg/dL (2.5-4.9); Potassium 4.4 mmol/L (3.5-5.1)
[2017-08-31] MEDS: VANCOMYCIN 2 GM in NA CHLORIDE 0.9% 500 ML IVPB SCH ×2 (05:08→18:27)
[2017-08-31] MEDS: PIPER/TAZO/NS 3.375gm 3.375 GM/100 ML BAG IVPB SCH ×2 (09:04→21:53)
[2017-08-31] MEDS: KETOROLAC 30 MG/ML INJ IV PRN ×2 (09:07→19:49)
--- NOTE | 2017-08-31 09:07 | P.PN ---
Subjective Date of Service: 08/31/17 Primary Care Provider: Dr Mahoney Chief Complaint: Perineal Abscess with Failed outpt therapy Subjective: Improving (Patient abscess of left perineum is improving with respect to pain and redness.) Physical Examination - Vital Signs Temperature: 97.3 F Blood Pressure: 127/73 Pulse: 73 Respirations: 18 Pulse Ox (%): 98 - Physical Exam General: Alert, In no apparent distress, Cooperative Integumentary: Other (left perineal wound continues to drain pus from incision. cellulitis remains) - Studies Laboratory Data (last 24 hrs) 08/30/17 10:55: WBC 20.8 H*, Hgb 14.2, Hct 40.8, Plt Count 234 08/30/17 10:55: Sodium 133 L, Potassium 4.3, BUN 15, Creatinine 1.10, Glucose 110 H, Total Bilirubin 0.7, AST 18, ALT 23, Alkaline Phosphatase 61 08/30/17 10:55: Creatinine 1.10 Assessment And Plan - Current Problems (Diagnosis) (1) Perineal abscess Current Visit: Yes Status: Acute Plan: -- Cross Coverage for Dr. Hopson -- continue daily dressing changes with packing irrigate santosh cellulitis with marker, notify MD if advances continue antibiotics
--- NOTE | 2017-08-31 10:42 | P.PN ---
Subjective Date of Service: 08/31/17 Primary Care Provider: Dr Mahoney Chief Complaint: Perineal Abscess with Failed outpt therapy Subjective: No C/O voiced, Tolerating diet, Improving, Doing well Review of Systems General: As per HPI Physical Examination - Vital Signs Temperature: 97.3 F Blood Pressure: 127/73 Pulse: 73 Respirations: 18 Pulse Ox (%): 98 - Physical Exam General: Alert, In no apparent distress HEENT: Atraumatic, PERRLA, EOMI Neck: Supple, JVD not distended Respiratory: Clear to auscultation bilaterally, Normal air movement Cardiovascular: Regular rate/rhythm, Normal S1 S2 Gastrointestinal: Normal bowel sounds, No tenderness Musculoskeletal: No tenderness Integumentary: No rashes Neurological: Normal speech, Normal tone, Normal affect Lymphatics: No axilla or inguinal lymphadenopathy External genitalia: Tenderness, Other (Packing in place in the perineal area. Drainage noted. Serasanginous) - Studies Laboratory Data (last 24 hrs) 08/30/17 10:55: WBC 20.8 H*, Hgb 14.2, Hct 40.8, Plt Count 234 08/30/17 10:55: Sodium 133 L, Potassium 4.3, BUN 15, Creatinine 1.10, Glucose 110 H, Total Bilirubin 0.7, AST 18, ALT 23, Alkaline Phosphatase 61 08/30/17 10:55: Creatinine 1.10 Medications List Reviewed: Yes Assessment & Plan - Problems (Diagnosis) (1) Cellulitis Onset Date: 08/31/17 Current Visit: Yes Status: Acute Plan: Cellulitis of the left perineal region with Failed outpt therapy -IV vanc and zosyn started -Wound culture and Blood Cutlure collected -Gen Surgery Consulted. Appreciated Reccs -Continue wound dressing and abx for now Qualifiers: Site of cellulitis: buttock Qualified Code(s): L03.317 - Cellulitis of buttock (2) Perineal abscess Onset Date: 08/31/17 Current Visit: Yes Status: Acute Plan: Perineal Abscess - IV vanc and zosyn -Gen Surgery Consulted -Pt to have Drainage in the ER at bedside -wound culture + for SA for now (3) HTN (hypertension) Onset Date: 08/31/17 Current Visit: Yes Status: Chronic Plan: Restart Home medication Qualifiers: Hypertension type: essential hypertension Qualified Code(s): I10 - Essential (primary) hypertension Discharge Plan: Home Plan to discharge in: 24 Hours - Code Status/Comfort Care Code Status Assessed: Yes Critical Care: No
[2017-08-31] MEDS: TRAMADOL HCL 50 MG TAB PO PRN ×2 (11:33→21:52)
--- NOTE | 2017-08-31 15:16 | CON ---
Date of Consultation: 08/30/2017 Reason: Perirectal infection. History Of Present Illness: The patient is a 36-year-old gentleman, who came to the emergency room with left perirectal region redness, pain, swelling, and warmth. He was seen in the ER on . He was discharged home on oral antibiotics and he continued to have increasing pain. Had an abscess diagnosed on the CT yesterday and I was contacted and it was superficial, therefore the ER pe rformed an incision and drainage. Cultures were sent and I was asked to follow this patient in the h ospital. He is awake and alert. He is still having pain, but it is a little bit better. No fever o r chills and no purulence. Review of Systems: Otherwise unremarkable. Past Medical History: Hypertension, depression. Past Surgical History: Negative. Allergies: PENICILLIN. Social History: Reviewed. Family History: Noncontributory. Physical Examination: Vital signs: Stable. He is afebrile. General: He is awake, alert, and oriented x3. Head and neck: Cranial nerves 2 through 12 grossly within normal limits. No neck masses. No JVD. Throat clear. Neck is supple. Chest clear. Heart: S1, S2. Abdomen: Soft. Extremities: Neurovascularly intact. Neuro: Nonfocal. Rectal: Reveals a packing in place on the left perirectal region with surrounding induration and mellisa thema. No fluctuance. There is tenderness present and there is no purulence seen. Laboratory Data: White count on admission was 20.8, today is 13.6. The left shift has improve and a bsolute neutrophils have improved. Chemistry reviewed. Assessment: Left perirectal abscess and cellulitis, status post incision and drainage. Recommendations: Continue IV antibiotics and continue clinical monitoring of this area. If the swel ling and redness does not improve over the next 24 hours, he may require formal incision and drainage in the operating room. We will make that determination either tomorrow or on Thursday, but at this time, he had significant cellulitis in this region. Please note, that his procalcitonin and lactic acid were within normal limits. We will follow this patient while in the hospital. He is on appropr iate antibiotics and the cultures are pending. Appears to be a staph, coag positive at this time. S ensitivities are pending. /MODL Voice ID: [id number] Report ID: [id number]
[2017-09-01] MEDS: NA CHLORIDE 0.9% 1,000 ML IV SCH ×3 (02:37→17:48)
[2017-09-01 04:17] LABS: Absolute Lymphocytes (CBC) 1.5 K/uL (0.7-4.9); Absolute Monocytes 1.1 K/uL (0.1-1.3); Absolute Neutrophil 8.6 K/uL (1.8-8.0); Basophils % 0.4 % (0-1.3); Eosinophils % 2.6 % (0-4.4); Hematocrit 39.7 % (39.6-49.0); Lymphocytes % 13.1 % (15.3-44.8); MCH 33.7 pg (27.0-35.0); MCV 97.1 fL (80-100); MPV 7.5 fL (7.6-11.3); Monocytes % 9.6 % (3.3-12.3); RBC Red Blood Cell Count 4.09 M/uL (4.33-5.43)
[2017-09-01 04:32] LABS: Albumin 2.8 g/dL (3.4-5.0); Bilirubin Total 0.2 mg/dL (0.2-1.0); Potassium 4.6 mmol/L (3.5-5.1); Protein, Total 6.5 g/dL (6.4-8.2)
[2017-09-01] MEDS: VANCOMYCIN 2 GM in NA CHLORIDE 0.9% 500 ML IVPB SCH ×2 (05:02→17:26)
[2017-09-01] MEDS: KETOROLAC 30 MG/ML INJ IV PRN (05:13)
[2017-09-01] MEDS: TRAMADOL HCL 50 MG TAB PO PRN (09:15)
[2017-09-01] MEDS: PIPER/TAZO/NS 3.375gm 3.375 GM/100 ML BAG IVPB SCH ×2 (09:15→21:38)
[2017-09-01] MEDS ORDERED: CHLORHEXIDINE GLUCO 4% 120 ML TOP SCH (11:00)
[2017-09-01] MEDS ORDERED: Ringers Lactate 1,000 ML IV ONE (13:26)
[2017-09-01] MEDS ORDERED: PROPOFOL 200 MG/20 ML VIAL IV ONE (13:33)
[2017-09-01] MEDS ORDERED: LIDOCAINE 2% MPF 5 ML VIAL ONE (13:34)
[2017-09-01] MEDS ORDERED: FENTANYL CITR 250 MCG/5 ML ONE (13:34)
[2017-09-01] MEDS ORDERED: ONDANSETRON HCL 40 MG/20 ML VIAL ONE (13:35)
[2017-09-01] MEDS ORDERED: MIDAZOLAM HCL 2 MG/2 ML INJ ONE (13:36)
--- NOTE | 2017-09-01 14:28 | P.PN ---
Subjective Date of Service: 09/01/17 Primary Care Provider: Dr Mahoney Chief Complaint: Perineal Abscess with Failed outpt therapy Subjective: NPO, Other (Awaiting Surgical Procedure at this time.) Review of Systems General: As per HPI Physical Examination - Vital Signs Temperature: 97.4 F Blood Pressure: 124/62 Pulse: 72 Respirations: 18 Pulse Ox (%): 98 - Physical Exam General: Alert, In no apparent distress HEENT: Atraumatic, PERRLA, EOMI Neck: Supple, JVD not distended Respiratory: Clear to auscultation bilaterally, Normal air movement Cardiovascular: Regular rate/rhythm, Normal S1 S2 Gastrointestinal: Normal bowel sounds, No tenderness Musculoskeletal: No tenderness Integumentary: No rashes Neurological: Normal speech, Normal tone, Normal affect Lymphatics: No axilla or inguinal lymphadenopathy External genitalia: Edema, Lesions, Masses - Studies Microbiology Data (last 24 hrs): 08/30/17 12:28 Blood - Blood Anaerobic Blood Culture - Final Medications List Reviewed: Yes Assessment & Plan - Problems (Diagnosis) (1) Cellulitis Onset Date: 08/31/17 Current Visit: Yes Status: Acute Plan: Cellulitis of the left perineal region with Failed outpt therapy -IV vanc and zosyn started -Culture + for MRSA -Gen Surgery Consulted. Appreciated Reccs -I&D today -Continue wound dressing and abx for now Qualifiers: Site of cellulitis: buttock Qualified Code(s): L03.317 - Cellulitis of buttock (2) Perineal abscess Onset Date: 08/31/17 Current Visit: Yes Status: Acute Plan: Perineal Abscess - IV vanc and zosyn -Gen Surgery Consulted. I&D scheduled for today -wound culture + for MRSA for now (3) HTN (hypertension) Onset Date: 08/31/17 Current Visit: Yes Status: Chronic Plan: Restart Home medication Qualifiers: Hypertension type: essential hypertension Qualified Code(s): I10 - Essential (primary) hypertension Discharge Plan: Home Plan to discharge in: 48 Hours - Code Status/Comfort Care Code Status Assessed: Yes Critical Care: No
[2017-09-01] MEDS ORDERED: MEPERIDINE HCL 25 MG/0.5 ML ONE ×3 (14:46→15:17)
[2017-09-01] MEDS ORDERED: PROMETHAZINE 25 MG/ML VIAL ONE (14:46)
--- NOTE | 2017-09-01 14:49 | P.OP ---
Preoperative diagnosis: Left Antonette-Rectal Abscess Postoperative diagnosis: same Primary procedure: EUA, Rigid Procto, I and D and Debridement L Antonette-Rectal Abcess Anesthesia: gen Estimated blood loss: min Specimen: c&s, pus Findings: as above Complications: None Transferred to: Recovery Room Condition: Good
--- NOTE | 2017-09-01 15:06 | PN ---
Date of Progress Note: 09/01/2017 Subjective: The patient is still having quite a bit of pain. His vital signs are stable. He is afe brile. Examination of the left perirectal area reveals marked induration and developing fluctuance b elow the incision, erythema, edema, tenderness. His white count is 11.6 with a left shift. Assessment: Left perirectal abscess. Plan: The patient will require formal incision and drainage and debridement in the operating room. Therefore risks, benefits and alternatives of the procedure as well as discussed with the family. They understand and agreed. Continue IV antibiotics. Please note, his cultures grew out MR and appropriate treatment has been started based on that result. SAMY/MAJO Voice ID: [id number] Report ID: [id number]
--- NOTE | 2017-09-01 15:30 | OP ---
Date of Procedure: 09/01/2017 Surgeon: Home Hopson MD Preoperative Diagnosis: Left perirectal abscess. Postoperative Diagnosis: Left perirectal abscess. Procedure: Exam under anesthesia, rigid proctoscopy, incision and drainage and debridement left elaina rectal abscess. Estimated Blood Loss: Minimal. Specimen: Pus. Findings: As above. Anesthesia: General. Complications: None. Disposition: The patient tolerated the procedure, in stable condition and taken to the Recovery in g ood general condition. Procedure In Detail: The patient was brought to the OR and placed in supine position. General anest hesia was begun. The patient was prepped and draped in the sterile fashion in the lithotomy position . Exam under anesthesia revealed a large left anterior area of induration with central fluctuance of approximately 10 x 6 cm with raised skin tissue. The rigid proctoscopy performed. No evidence of i nternal connection with this infection. Subsequently, Marcaine 0.5% was infiltrated locally. Then 1 5 blade was used to make approximately 6 cm incision over the most fluctuant part of the abscess. Boyd bcutaneous tissue divided and deep to subcutaneous tissue pus and necrotic tissue encountered. Cultu res done. Entire wound was irrigated. Bleeding controlled with cautery. Necrotic tissue debrided. Wound irrigated again and bleeding controlled with cautery. Wet-to-dry normal saline dressing escalante e applied. The patient tolerated the procedure in stable condition and taken to Recovery in good general condition. /MODL Voice ID: [id number] Report ID: [id number]
[2017-09-01] MEDS ORDERED: MEPERIDINE HCL 25 MG/0.5 ML IV SCH (15:32)
[2017-09-01] MEDS: HYDROCODONE/APAP 7.5/325 MG TAB PO PRN ×2 (15:53→23:38)
[2017-09-01] MEDS ORDERED: MUPIROCIN 2% OINT 22GM TUBE TOP SCH (21:00)
[2017-09-01] MEDS: MUPIROCIN 2% OINT 22GM TUBE TOP SCH (21:38)
[2017-09-01] MEDS: MEPERIDINE HCL 25 MG/0.5 ML IV PRN (21:40)
[2017-09-02 01:42] VITALS: O2SAT 98
[2017-09-02] MEDS: NA CHLORIDE 0.9% 1,000 ML IV SCH ×2 (02:50→14:00)
[2017-09-02] MEDS: MEPERIDINE HCL 25 MG/0.5 ML IV PRN ×5 (03:10→22:03)
[2017-09-02 04:39] LABS: Absolute Lymphocytes (CBC) 1.8 K/uL (0.7-4.9); Absolute Monocytes 1.2 K/uL (0.1-1.3); Basophils % 0.6 % (0-1.3); Eosinophils % 2.8 % (0-4.4); Hematocrit 39.5 % (39.6-49.0); Lymphocytes % 15.8 % (15.3-44.8); MCH 33.8 pg (27.0-35.0); MCV 97.1 fL (80-100); MPV 7.5 fL (7.6-11.3); Monocytes % 10.1 % (3.3-12.3); RBC Red Blood Cell Count 4.07 M/uL (4.33-5.43)
[2017-09-02 05:42] LABS: Bilirubin Total 0.2 mg/dL (0.2-1.0); Potassium 4.4 mmol/L (3.5-5.1); Protein, Total 7.1 g/dL (6.4-8.2)
[2017-09-02] MEDS: VANCOMYCIN 2 GM in NA CHLORIDE 0.9% 500 ML IVPB SCH ×2 (06:00→17:10)
[2017-09-02] MEDS: HYDROCODONE/APAP 7.5/325 MG TAB PO PRN ×3 (08:58→20:19)
[2017-09-02] MEDS: PIPER/TAZO/NS 3.375gm 3.375 GM/100 ML BAG IVPB SCH ×2 (08:59→20:18)
[2017-09-02] MEDS: LISINOPRIL 20 MG TAB PO SCH (08:59)
[2017-09-02] MEDS: MUPIROCIN 2% OINT 22GM TUBE TOP SCH ×2 (09:00→20:19)
--- NOTE | 2017-09-02 11:22 | P.PN ---
Subjective Date of Service: 09/02/17 Primary Care Provider: Dr Mahoney Chief Complaint: Perineal Abscess with Failed outpt therapy Patient seen and examined at bedside with RN. Chart reviewed. Case discussed with general surgery. Patient overall is doing well today. Currently status post incision and debridement of the abscess. Review of Systems General: As per HPI Physical Examination - Vital Signs Temperature: 97.0 F Blood Pressure: 132/77 Pulse: 64 Respirations: 16 Pulse Ox (%): 98 - Physical Exam General: Alert, In no apparent distress, Oriented x3 HEENT: Atraumatic, PERRLA, EOMI Neck: Supple, JVD not distended Respiratory: Clear to auscultation bilaterally, Normal air movement Cardiovascular: Regular rate/rhythm, Normal S1 S2 Gastrointestinal: Normal bowel sounds, No tenderness Musculoskeletal: No tenderness Integumentary: Other (Cellulitis on the left perineal area, incision with packing at this time. ) Neurological: Normal speech, Normal tone, Normal affect Lymphatics: No axilla or inguinal lymphadenopathy - Studies Medications List Reviewed: Yes Assessment & Plan - Problems (Diagnosis) (1) Cellulitis Onset Date: 08/31/17 Current Visit: Yes Status: Acute Plan: Cellulitis of the left perineal region with Failed outpt therapy -IV vanc and zosyn started -Culture + for MRSA -Gen Surgery Consulted. Appreciated Reccs -S/p I&D POD # 1 -Continue wound dressing and abx for now Qualifiers: Site of cellulitis: buttock Qualified Code(s): L03.317 - Cellulitis of buttock (2) Perineal abscess Onset Date: 08/31/17 Current Visit: Yes Status: Acute Plan: Perineal Abscess - IV vanc and zosyn -Gen Surgery Consulted. -S/p I&D POD # 1 -wound culture + for MRSA for now (3) HTN (hypertension) Onset Date: 08/31/17 Current Visit: Yes Status: Chronic Plan: Restart Home medication Qualifiers: Hypertension type: essential hypertension Qualified Code(s): I10 - Essential (primary) hypertension Discharge Plan: Home Plan to discharge in: 24 Hours - Code Status/Comfort Care Code Status Assessed: Yes Critical Care: No
--- NOTE | 2017-09-02 15:19 | PN ---
Date of Progress Note: 09/02/2017 Subjective: The patient is awake and alert, complaining of some soreness in the surgical area. Gianna l signs stable afebrile. No fever or chills. White count is still slightly elevated. Dressing is c lean, dry, and intact. Cultures reviewed. First culture grew out MRSA. The OR cultures are still p ending. Assessment: Status post incision drainage and debridement, perirectal abscess. Recommendations: Continue IV antibiotics today, probable discharge tomorrow. We will require covera ge for MRSA. Wound care as ordered and followup in my office 1-2 weeks. /MODL Voice ID: [id number] Report ID: [id number]
[2017-09-03] MEDS: NA CHLORIDE 0.9% 1,000 ML IV SCH (02:02)
[2017-09-03] MEDS: HYDROCODONE/APAP 7.5/325 MG TAB PO PRN ×2 (02:02→09:19)
[2017-09-03 04:25] LABS: Magnesium 2.2 mg/dL (1.8-2.4); Phosphorus 4.9 mg/dL (2.5-4.9); Potassium 4.7 mmol/L (3.5-5.1)
[2017-09-03] MEDS: VANCOMYCIN 2 GM in NA CHLORIDE 0.9% 500 ML IVPB SCH (05:53)
[2017-09-03] MEDS: MUPIROCIN 2% OINT 22GM TUBE TOP SCH (09:00)
[2017-09-03] MEDS: LISINOPRIL 20 MG TAB PO SCH (09:19)
[2017-09-03] MEDS: PIPER/TAZO/NS 3.375gm 3.375 GM/100 ML BAG IVPB SCH (09:20)
[2017-09-03] MEDS: MEPERIDINE HCL 25 MG/0.5 ML IV PRN (11:55)
--- NOTE | 2017-09-03 12:11 | P.DS ---
Admission Date: 08/30/17 Discharge Date: 09/03/17 Primary Care Provider: Dr Mahoney Reason for Admission: Perineal Abscess with Failed outpt therapy Consultations: Dr. Hopson Procedures: I&D of perineal abscess - Problems (1) Cellulitis Onset Date: 08/31/17 Status: Acute Qualifiers: Site of cellulitis: buttock Qualified Code(s): L03.317 - Cellulitis of buttock (2) Perineal abscess Onset Date: 08/31/17 Status: Acute (3) HTN (hypertension) Onset Date: 08/31/17 Status: Chronic Qualifiers: Hypertension type: essential hypertension Qualified Code(s): I10 - Essential (primary) hypertension Brief History of Present Illness: Patient was brought into the hospital after failing outpatient therapy for cellulitis and abscess to the buttock perineal region. Patient had been put on IV antibiotics. And General Surgery was consulted and which an incision and drainage of the abscess was completed. Hospital Course: Patient was seen this morning and is doing much better. Patient has mild pain to the incision site. Mild drainage noted to region. Cellulitis has seemed to improved. Mild pain to affected area noted by palpation but substantially less than over the last day or so. Patient is able to tolerate p.o. fluids and food without any problem. Vital signs have remained stable. General surgery has seen him today and from a surgical standpoint has been cleared to go home and continue p.o. antibiotics and pain medicine. Patient agrees with plan of care and is ready to go home and will followup with general surgery and primary care physician. <Ricki Blackwell - Last Filed: 09/03/17 12:06> Admission Date: 08/30/17 Discharge Date: 09/03/17 Hospital Course: Case discussed with PA. Agree with above plan Case discussed w Dr. Hopson. Ok to DC on PO Abx. f/up w him for wound check. <Jessenia Ovalle - Last Filed: 09/03/17 15:07> Disposition: ROUTINE DISCHARGE Discharge Condition: GOOD Vital Signs/Physical Exam: Temp Pulse Resp BP Pulse Ox 97.0 F 59 16 148/72 H 100 09/03/17 08:00 09/03/17 08:00 09/03/17 08:00 09/03/17 09:19 09/03/17 08:00 General: Alert, In no apparent distress, Oriented x3 HEENT: PERRLA, Mucous membr. moist/pink, EOMI Neck: Supple, 2+ carotid pulse no bruit Respiratory: Clear to auscultation bilaterally, Normal air movement Cardiovascular: No edema, Normal pulses, Regular rate/rhythm, Normal S1 S2 Capillary refill: <2 Seconds Gastrointestinal: Normal bowel sounds, Soft and benign, No tenderness Musculoskeletal: No clubbing, No swelling, No contractures, No erythema, No tenderness, No warmth Integumentary: Other (Clean incision site noted mild induration to region. No active [place] discharge noted. Packing in place.) Neurological: Normal gait, Normal speech, Normal strength at 5/5 x4 extr, Normal tone, Sensation intact, Cranial nerves 3-12 intact, Normal reflexes 2+, Normal affect Laboratory Data at Discharge: WBC 11.4 K/uL (4.3-10.9) H 09/02/17 03:45 Hgb 13.8 g/dL (13.6-17.9) 09/02/17 03:45 Hct 39.5 % (39.6-49.0) L 09/02/17 03:45 Plt Count 298 K/uL (152-406) 09/02/17 03:45 Sodium 143 mmol/L (136-145) 09/03/17 04:00 Potassium 4.7 mmol/L (3.5-5.1) 09/03/17 04:00 BUN 11 mg/dL (7-18) 09/03/17 04:00 Creatinine 1.10 mg/dL (0.55-1.3) 09/03/17 04:00 Glucose 93 mg/dL (74-106) 09/03/17 04:00 Phosphorus 4.9 mg/dL (2.5-4.9) 09/03/17 04:00 Magnesium 2.2 mg/dL (1.8-2.4) 09/03/17 04:00 Total Bilirubin 0.2 mg/dL (0.2-1.0) 09/02/17 03:45 AST 20 U/L (15-37) 09/02/17 03:45 ALT 27 U/L (12-78) 09/02/17 03:45 Alkaline Phosphatase 70 U/L (45-117) 09/02/17 03:45 <Ricki Blackwell - Last Filed: 09/03/17 12:06> Vital Signs/Physical Exam: Temp Pulse Resp BP Pulse Ox 97.7 F 76 16 157/86 H 99 09/03/17 12:00 09/03/17 12:00 09/03/17 12:00 09/03/17 12:00 09/03/17 12:00 Laboratory Data at Discharge: WBC 11.4 K/uL (4.3-10.9) H 09/02/17 03:45 Hgb 13.8 g/dL (13.6-17.9) 09/02/17 03:45 Hct 39.5 % (39.6-49.0) L 09/02/17 03:45 Plt Count 298 K/uL (152-406) 09/02/17 03:45 Sodium 143 mmol/L (136-145) 09/03/17 04:00 Potassium 4.7 mmol/L (3.5-5.1) 09/03/17 04:00 BUN 11 mg/dL (7-18) 09/03/17 04:00 Creatinine 1.10 mg/dL (0.55-1.3) 09/03/17 04:00 Glucose 93 mg/dL (74-106) 09/03/17 04:00 Phosphorus 4.9 mg/dL (2.5-4.9) 09/03/17 04:00 Magnesium 2.2 mg/dL (1.8-2.4) 09/03/17 04:00 Total Bilirubin 0.2 mg/dL (0.2-1.0) 09/02/17 03:45 AST 20 U/L (15-37) 09/02/17 03:45 ALT 27 U/L (12-78) 09/02/17 03:45 Alkaline Phosphatase 70 U/L (45-117) 09/02/17 03:45 <Jessenia Ovalle - Last Filed: 09/03/17 15:07> Patient Discharge Instructions: f/up w PCP in 2-3 days. f/up w surgeon Dr. Hopson in 2 weeks. Return to ER for worsening condition Diet: AHA Activity: Ad alisa <Ricki Blackwell - Last Filed: 09/03/17 12:06> <Jessenia Ovalle - Last Filed: 09/03/17 15:07> Home Medications: Lisinopril [Prinivil*] 20 mg PO DAILY 08/30/17 Chlorhexidine 4% [Betasept*] 1 appl TOP UD #1 btl 09/03/17 Codeine/APAP [Tylenol W/Codeine #3 tab] 1 tab PO Q6HP PRN #12 tab 09/03/17 Doxycycline Monohydrate 100 mg PO BID #20 capsule 09/03/17 Mupirocin Oint [Bactroban 2% Ointment*] 1 appl TOP BID #1 tube 09/03/17 Smz./Tmp. [Bactrim Ds 800 MG/160 MG] 1 tab PO BID #20 tab 09/03/17 New Medications: Codeine/APAP [Tylenol W/Codeine #3 tab] 1 tab PO Q6HP PRN #12 tab PRN Reason: Pain Chlorhexidine 4% [Betasept*] 1 appl TOP UD #1 btl Doxycycline Monohydrate 100 mg PO BID #20 capsule Mupirocin Oint [Bactroban 2% Ointment*] 1 appl TOP BID #1 tube Smz./Tmp. [Bactrim Ds 800 MG/160 MG] 1 tab PO BID #20 tab
[2017-09-03 12:42] VITALS: BP 157/86; TEMP 97.7
== END 2017-09-03 12:20 | disposition home or self-care (01) | DRG 571 ==
LOC: ER 09:37 → ERHOLD 12:53 → 4TH 15:28
PROVIDERS: ADMIT Family Medicine; ATTEND Family Medicine
PROC: 0DJD8ZZ Inspection of Lower Intestinal Tract, Via Natural or Artificial Opening Endoscopic (ICD-10-PCS; 2017-09-01)
PROC: 0JBB0ZZ Excision of Perineum Subcutaneous Tissue and Fascia, Open Approach (ICD-10-PCS; principal; 2017-09-01 10:00)
DX: L02.215 Cutaneous abscess of perineum (principal); L03.317 Cellulitis of buttock; K61.1 Rectal abscess; L03.315 Cellulitis of perineum; I10 Essential (primary) hypertension; B95.62 Methicillin resistant Staphylococcus aureus infection as the cause of diseases classified elsewhere; F32.9 Major depressive disorder, single episode, unspecified; Z88.0 Allergy status to penicillin
CPT/HCPCS: 36415; 72193; 80048; 80053; 80076; 80202; 83605; 83735; 84100; 84145; 85025; 87040; 87070; 87075; 87077; 87186; 87205; 88304; 96365; 96366; 96367; 96375; 99285; J2175; J2250; J2405; J2543; J2550; J3010; J3370; J7030; Q9967